=== PATIENT | male | born 1995 | race African-American/Black ===

== ENCOUNTER 2017-01-09 00:38 | Emergency (ER) | payer SELFPAY ==
[~2017-01-09] VITALS: Ht 177.8 cm; Wt 67.1 kg
[2017-01-09 00:55] VITALS: BP 140/86
[2017-01-09] MEDS ORDERED: Ketorolac 30mg Inj IM ONE (01:15)
[2017-01-09] MEDS ORDERED: CYCLOBENZAPRINE10 MG ORAL (02:43)
[2017-01-09] MEDS ORDERED: IBUPROFEN600 MG ORAL (02:43)
[2017-01-09 02:50] VITALS: BP 138/85
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
== END 2017-01-09 02:50 | disposition home or self-care (01) ==
LOC: EMR 01:22
DX: M79.604 Pain in right leg (principal); V43.62XA Car passenger injured in collision with other type car in traffic accident, initial encounter; Y92.410 Unspecified street and highway as the place of occurrence of the external cause; Y99.8 Other external cause status
CPT/HCPCS: 96372; 99284; J1885